=== PATIENT | female | born 1995 | race Caucasian/White ===

== ENCOUNTER 2024-07-09 19:28 | Inpatient (IN) | payer BC ==
[~2024-07-09] VITALS: Ht 170.2 cm; Wt 64.0 kg
[2024-07-09] MEDS ORDERED: NO HOME MEDS (20:08)
[2024-07-09] MEDS ORDERED: diphenhydrAMINE 50 mg/ml inj IM ONE (20:15)
[2024-07-09] MEDS: LORazepam 1 MG tablet PO ONE (20:43)
[2024-07-09] MEDS: OLANZapine 2.5MG tablet PO STA (20:43)
[2024-07-09 20:47] LABS: BASOPHILS % (AUTO) 0.4 % (0-1); EOSINOPHILS % (AUTO) 0.2 % (0-6); HEMATOCRIT 44.9 % (35.0-45.0); HEMOGLOBIN 15.3 g/dl (12.0-16.0); LYMPHOCYTES % (AUTO) 18.9 % (21-51); MEAN CORPUSCULAR HGB CONC 33.9 g/dL (33.0-36.5); MEAN CORPUSCULAR VOLUME 91.5 FL (78-98); MEAN PLATELET VOLUME 8.4 FL (7.4-10.4); MONOCYTES # (AUTO) 0.9 X10'3 (0-0.9); MONOCYTES % (AUTO) 8.7 % (2-12); NEUTROPHILS # (AUTO) 7.7 X10'3 (1.8-7.7); NEUTROPHILS % (AUTO) 71.8 % (42-75); PLATELET COUNT 324 X10'3 (140-440); RED BLOOD COUNT 4.91 X10'6 (4.20-5.60); RED CELL DISTRIBUTION WIDTH 12.7 % (11.5-14.5); WHITE BLOOD COUNT 10.7 X10'3 (4.5-11.0)
[2024-07-09] MEDS: OLANZAPINE 5 MG TABLET PO STA (20:47)
[2024-07-09 21:07] LABS: ALANINE AMINOTRANSFERASE 25 U/L (12-78); ALBUMIN 4.2 G/DL (3.4-5.0); ALBUMIN/GLOBULIN RATIO 1.4 (1.1-1.5); ALKALINE PHOSPHATASE 44 IU/L (46-116); ANION GAP 14 (8-16); ASPARTATE AMINO TRANSFERASE 31 U/L (10-37); BLOOD UREA NITROGEN 20 MG/DL (7-18); BUN/CREATININE RATIO 24.4 (10.0-20.0); CALCIUM 8.9 MG/DL (8.5-10.1); CHLORIDE 103 MMOL/L (99-107); CREATININE 0.82 MG/DL (0.40-0.90); GLUCOSE 77 MG/DL (70-104); SODIUM 139 MMOL/L (135-145); TOTAL CARBON DIOXIDE 22.5 MMOL/L (24-32); TOTAL PROTEIN 7.3 G/DL (6.4-8.2); eCRCL 98 ML/MIN; eGFR 82 ML/MIN
[2024-07-09 21:16] LABS: ETHANOL < 10 MG/DL (<10); THYROID STIMULATING HORMONE 2.62 ulU/ml (0.34-4.50)
[2024-07-09 21:38] LABS: BILIRUBIN,URINE NEGATIVE (Neg); CLARITY,URINE CLOUDY (Clear); COLOR,URINE YELLOW (Yellow); GLUCOSE, URINE NEGATIVE (Neg); KETONES,URINE >=80 mg/dl (Neg); LEUKOCYTE ESTERASE ,URINE NEGATIVE (Neg); NITRITES, URINE NEGATIVE (Neg); OCCULT BLOOD,URINE NEGATIVE (Neg); PROTEIN,URINE 30 mg/dl (Neg); UROBILINOGEN,URINE 0.2 E.U/dL (0.2-1.0)
[2024-07-09 21:54] LABS: URINE AMPHETAMINE SCREEN NEGATIVE (Neg); URINE BARBITUATE SCREEN NEGATIVE (Neg); URINE BENZODIAZEPINES SCREEN NEGATIVE (Neg); URINE CANNABINOID SCREEN POSITIVE (Neg); URINE COCAINE SCREEN NEGATIVE (Neg); URINE METHADONE SCREEN NEGATIVE (Neg); URINE OPIATE SCREEN NEGATIVE (Neg); URINE PHENCYCLIDINE SCREEN NEGATIVE (Neg)
[2024-07-09] MEDS: ibuprofen tablet 400 MG TABLET PO ONE (21:56)
[2024-07-09 22:02] LABS: UA COLLECTION TYPE CLN CATCH MIDSTREAM
[2024-07-09 22:03] LABS: BACTERIA,URINE 1+ /HPF (Neg); RBC,URINE NONE SEEN /HPF (0-2); SQUAMOUS EPITHELIAL CELL,UR FEW /LPF (FEW); WBC,URINE 0-4 /HPF (0-4)
[2024-07-09 22:04] LABS: MUCUS STRANDS FEW /LPF (Neg)
[2024-07-09 22:26] LABS: BETA HCG,QUANTITATIVE < 1.0 mIU/ml
[2024-07-10 20:00] VITALS: BP 138/94; PULSE 93; RESP 17; TEMP 98.2; O2SAT 100
[2024-07-10] MEDS ORDERED: mag hydrox/Alum hydrox/simeth 30ml oral suspension PO PRN (20:40)
[2024-07-10 21:57] VITALS: RESP 17; O2SAT 100
[2024-07-10] MEDS: OLANZapine 2.5MG tablet PO SCH (22:06)
[2024-07-10] MEDS: acetaminophen 325mg tablet PO PRN (22:06)
[2024-07-10] MEDS: traZODone 50mg tablet PO SCH (22:06)
[2024-07-11 07:20] VITALS: BP 114/84; PULSE 100; RESP 16; TEMP 98.6; O2SAT 98
[2024-07-11 08:39] LABS: CHOL/HDL RATIO 2.1 (0.00-4.99); CHOLESTEROL 179 MG/DL (0-200); HDL CHOLESTEROL 86 MG/DL (35-60); LDL CHOLESTEROL 75 MG/DL (50-100); TRIGLYCERIDES 118 MG/DL (20-135)
[2024-07-11 09:10] VITALS: RESP 16; RESP 17; O2SAT 100; O2SAT 98
[2024-07-11 09:27] LABS: HEMOGLOBIN A1C 4.9 % (4.5-6.2)
[2024-07-11] MEDS: sertraline 25mg tablet PO SCH (16:49)
[2024-07-11] MEDS: acetaminophen 325mg tablet PO PRN (16:50)
[2024-07-11 20:00] VITALS: RESP 16
[2024-07-11] MEDS: aripiprazole 5mg tablet PO SCH (20:33)
[2024-07-11] MEDS: docusate sod 100mg capsule PO SCH (20:33)
[2024-07-11] MEDS: hydrOXYzine 25 MG tablet PO SCH (20:34)
[2024-07-12 07:00] VITALS: RESP 18; O2SAT 98
[2024-07-12 08:00] VITALS: BP 132/75; PULSE 116; RESP 18; TEMP 97.9; O2SAT 98
[2024-07-12] MEDS: ondansetron 4mg rapidly disintigrating tab PO PRN (08:03)
[2024-07-12] MEDS: magnesium hydroxide 30ml (MOM) UD suspension PO PRN (08:03)
[2024-07-12] MEDS: hydrOXYzine 25 MG tablet PO SCH ×2 (08:14→20:12)
[2024-07-12 19:00] VITALS: RESP 18; O2SAT 99
[2024-07-12 20:00] VITALS: BP 136/90; PULSE 98; RESP 18; TEMP 99.7
[2024-07-12] MEDS: sertraline 50mg tablet PO ONE (20:13)
[2024-07-13 07:30] VITALS: BP 141/94; PULSE 100; RESP 16; TEMP 97.8; O2SAT 100; O2SAT 93
[2024-07-13] MEDS ORDERED: sertraline 25mg tablet PO SCH (08:00)
[2024-07-13 19:00] VITALS: RESP 17
[2024-07-13 20:00] VITALS: PULSE 97; RESP 17; TEMP 98.3; O2SAT 98
[2024-07-13] MEDS: sertraline 25mg tablet PO SCH (21:02)
[2024-07-14] MEDS: hydrOXYzine 25 MG tablet PO PRN (03:18)
[2024-07-14 07:30] VITALS: BP 130/75; PULSE 95; RESP 18; TEMP 97.5; O2SAT 96
[2024-07-14 12:45] LABS: HCG SERUM QL NEGATIVE
[2024-07-14 19:00] VITALS: RESP 16; O2SAT 98
[2024-07-14 20:00] VITALS: BP 121/85; PULSE 97; RESP 16; TEMP 98.2
[2024-07-15 07:30] VITALS: BP 147/66; PULSE 103; RESP 16; TEMP 97.4; O2SAT 97
[2024-07-15 19:00] VITALS: RESP 18; O2SAT 99
[2024-07-15 20:15] VITALS: BP 150/88; PULSE 105; RESP 15; TEMP 97.8
[2024-07-15] MEDS: cetirizine 10mg tablet PO SCH (21:34)
[2024-07-16 07:30] VITALS: BP 123/80; PULSE 90; RESP 15; TEMP 97.7
[2024-07-16] MEDS ORDERED: HYDR-3686 PO (10:52)
[2024-07-16] MEDS ORDERED: SERT25TA84 PO (10:52)
[2024-07-16] MEDS ORDERED: ARIP5TAB53 PO (10:52)
== END 2024-07-16 11:35 | disposition home or self-care (01) | DRG 881 ==
LOC: ER 19:29 → EEVIPCON 19:29 → ADULT MH 07-10 14:15
PROVIDERS: ADMIT Psychiatry & Neurology Psychiatry; ATTEND Psychiatry & Neurology Psychiatry
PROC: GZHZZZZ Group Psychotherapy (ICD-10-PCS; principal; 2024-07-11)
PROC: GZ51ZZZ Individual Psychotherapy, Behavioral (ICD-10-PCS; 2024-07-11)
DX: F32.9 Major depressive disorder, single episode, unspecified (principal); R45.851 Suicidal ideations; F41.9 Anxiety disorder, unspecified; Z20.822 Contact with and (suspected) exposure to COVID-19; S00.11XA Contusion of right eyelid and periocular area, initial encounter; Z88.8 Allergy status to other drugs, medicaments and biological substances; Z91.410 Personal history of adult physical and sexual abuse; X58.XXXA Exposure to other specified factors, initial encounter; Y93.89 Activity, other specified; Y92.89 Other specified places as the place of occurrence of the external cause; Y99.8 Other external cause status
CPT/HCPCS: 36415; 80053; 80061; 80305; 80320; 81001; 83036; 84443; 84702; 84703; 85025; 87081; 87811; 99285; Q0177

== ENCOUNTER 2024-12-25 12:14 | Emergency (ER) | payer BC ==
[~2024-12-25] VITALS: Ht 165.1 cm; Wt 61.4 kg
[~2024-12-25 12:14] MED LIST: ARIP5TAB53 PO; HYDR-3686 PO; SERT25TA84 PO
[2024-12-25 12:17] VITALS: TEMP 97.8
--- NOTE | 2024-12-25 12:27 | ELECTROCARDIOGRAPH REPORT ---
[facility] Test Date: 2024-12-25 Test Time: 12:25:41 Pat Name: LARA MOORE Department: [facility] Patient ID: [id number] Room: Gender: F Tours Hostess: : 1995 Requested By: JAS PUCKETT Order Number: [id number] Reading MD: Measurements Intervals [place] Rate: 117 P: 86 MN: 172 QRS: 65 QRSD: 81 T: 35 QT: 304 QTc: 424 Interpretive Statements Sinus tachycardia Probable left atrial enlargement Please click the below link to view image of tracing.
--- NOTE | 2024-12-25 15:29 | Physician Documentation ---
History of Present Illness ~ Chief Complaint: Dizziness Stated Complaint: ANXIETY Time Seen by MD: 14:21 Primary Medical Doctor: None HPI Maryanne is a 29-year-old female brought to the emergency department after an episode last evening that involved both upper and lower extremities being numb and tingling without loss of consciousness yet was associated with chest discomfort anxiousness and nervousness. Patient takes Vyvanse, hydroxyzine p.r.n. and Pristiq. She is followed by psychiatry. Her Vyvanse dose was recently increased three weeks ago yet this is the 1st episode of this severity. Prior episodes were less severe which is why patient was placed on the hydroxyzine. There was no loss of consciousness. Episode has been slowly resolving on its own. Patient does report that Wednesday she had marijuana from a pen. Presently she has some occasional chest discomfort without shortness of breath. No other recent illness, injuries or ill contacts or travels. Accompanied the emergency department with her mom. Patient will need reports that she celebrated her boyfriend's birthday with several cocktails and cannabis. Reports that she felt hung over the following day. Reports this is not her normal activity. Medication Reconciliation Allergies: Coded Allergies: diphenhydramine (Verified Adverse Reaction, Mild, 12/25/24) Uncoded Allergies: docusate sodium (Adverse Reaction, Intermediate, Nausea and vomiting, 07/16/24) pt was being treated for nausea, and feels better without colace given. Mother has same response to stool softeners. Scheduled Aripiprazole (Aripiprazole), 5 MG PO HS Sertraline HCl (Sertraline HCl), 3 TAB PO DAILY Scheduled PRN Hydroxyzine Hcl* (Atarax*), 25 MG PO Q6H PRN for Anxiety Review of Systems Constitutional: Reports: see HPI Eyes: Reports: no symptoms reported ENT: Reports: no symptoms reported Respiratory: Reports: no symptoms reported Cardiovascular: Reports: chest pain, lightheadedness, irregular heart rate; Denies: syncope, palpitations Gastrointestinal: Denies: nausea, vomiting Neurological: Reports: no symptoms reported Musculoskeletal: Reports: no symptoms reported Integumentary: Reports: no symptoms reported Hematologic/Lymphatic: Reports: no symptoms reported Endocrine: Reports: no symptoms reported Psychiatric: Reports: anxiety Physical Exam Vital Signs: Temperature: 97.8, Source: Temporal, Heart Rate: 118, Respiratory Rate: 18, BP: 147/105, Pulse Oximetry: 99, Weight: 61.360 General Appearance: alert, WD/WN; No: ill-appearing, mild distress Neck: non-tender Head: normal Pupils/EOM/Fundus: PERRLA EENT: normal ENT inspection Respiratory: lungs clear, normal breath sounds Chest: no accessory muscle use Cardiovascular: normal peripheral pulses, regular rate, rhythm, no edema, no gallop, no JVD, no murmur Gastrointestinal: non-tender Back: normal inspection Skin: warm/dry Orientation / Memory / CN: oriented x3 Coordination / Gait: normal finger to nose Motor / Sensory: no motor deficit Cerebellar Function: normal Psych: appropriate Progress Results/Orders Results/Orders Completed Orders - MELISA MORENO PAC TSH (12/25/24 15:12) CMP (12/25/24 15:12) Cbc/Diff (12/25/24 15:12) Drug Screen, Urine (12/25/24 15:12) Hcg, Ur Ql (12/25/24 15:12) Ua W/Microscopic, Cult If Ind (12/25/24 15:24) Vital Signs 12/25/24 12/25/24 12/25/24 12:17 15:48 17:11 Temp 97.8 Pulse 118 94 90 Resp 18 16 16 B/P (MAP) 147/105 136/100 (112) 131/87 Pulse Ox 99 94 96 O2 Flow Rate 0 Laboratory Tests Test 12/25/24 15:24 12/25/24 15:33 Urine Specimen Description Cln catch midstream Urine Color Yellow Urine Clarity Clear Urine pH 6.0 Urine Specific [place] <=1.005 Urine Protein Negative Urine Glucose (UA) Negative Urine Ketones 40 H Urine Occult Blood Trace-intact Urine Nitrite Negative Urine Bilirubin Negative Urine Urobilinogen 0.2 Urine Leukocyte Esterase Negative Urine RBC None seen Urine WBC 0-4 Urine Squamous Epithelial Cells Moderate Urine Bacteria None seen Urine Culture Indicated Not ind Volume Urine Centrifuged 10 ml Urine HCG, Qualitative Negative Urine Comment Urine Opiates Screen Negative Urine Methadone Screen Negative Urine Fentanyl Screen Negative Urine Barbiturates Screen Negative Urine Phencyclidine Screen Negative Urine Amphetamines Screen Positive Urine Benzodiazepines Screen Negative Urine Cocaine Screen Negative Urine Cannabinoids Screen Positive Drug Screen Comment White Blood Count 8.7 Red Blood Count 4.87 Hemoglobin 14.9 Hematocrit 43.0 Mean Corpuscular Volume 88.2 Mean Corpuscular Hemoglobin 30.5 Mean Corpuscular Hemoglobin Concent 34.6 Red Cell Distribution Width 13.1 Platelet Count 276 Mean Platelet Volume 7.7 Neutrophils (%) (Auto) 77.6 H Lymphocytes (%) (Auto) 17.2 L Monocytes (%) (Auto) 4.6 Eosinophils (%) (Auto) 0.3 Basophils (%) (Auto) 0.3 Neutrophils # (Auto) 6.8 Lymphocytes # (Auto) 1.5 Monocytes # (Auto) 0.4 Eosinophils # (Auto) 0.0 Basophils # (Auto) 0.0 CBC Comment Sodium Level 140 Potassium Level 4.0 Chloride Level 101 Carbon Dioxide Level 25.3 Anion Gap 14 Blood Urea Nitrogen 11 Creatinine 0.73 Estimated GFR/1.73 m2 > 90 BUN/Creatinine Ratio 15.1 Glucose Level 86 Calcium Level 9.1 Total Bilirubin 1.5 H Aspartate Amino Transf (AST/SGOT) 23 Alanine Aminotransferase (ALT/SGPT) 16 Alkaline Phosphatase 49 Total Protein 7.9 Albumin 4.2 Globulin 3.7 Albumin/Globulin Ratio 1.1 Thyroid Stimulating Hormone (TSH) 3.95 Chemistry Comments Medical Decision Making Additional Information ED plan to include laboratory screening for electrolyte derangement, white blood cell abnormalities, urine , tox screen and infection. EKG is reassuring. Patient has the ability to schedule psychiatry follow up. Her labs we will be obtained, reviewed and discussed with her. Labs and toxicology all reassuring. Patient is likely pending discharge after laboratory review. No a dditional episodes that were similar to last night. In fact mother reports that she has likely on normalized and metabolize to her norm. Patient's safely discharged in the emergency department after shared discussion regarding the risks of the head benefits of recreational drugs and alcohol use with current medications. Departure Disposition: HOME / SELF CARE / HOMELESS Impression: Primary Impression: Dizziness Additional Impression: Dehydration Condition: Improved Discharge Instructions: Dizziness Additional Instructions: Please continue to oral hydrate. Please make follow up appointment with Psychiatry regarding medication review. Your labs were all reassuring today. Thank you for visiting emergency department of [facility]. Referrals: NO PRIMARY CARE PROVIDER (PCP) Education Educated: Patient, Family Educated regarding: diagnosis, treatment Signature Scribe Signature: . Attestation: . MELISA MORENO PAC Dec 25, 2024 15:29
[2024-12-25 15:40] LABS: MEAN PLATELET VOLUME 7.7 FL (7.4-10.4); RED CELL DISTRIBUTION WIDTH 13.1 % (11.5-14.5)
[2024-12-25 15:43] LABS: URINE HCG NEGATIVE (NEG)
[2024-12-25 15:46] LABS: LEUKOCYTE ESTERASE ,URINE NEGATIVE (Neg); NITRITES, URINE NEGATIVE (Neg); OCCULT BLOOD,URINE TRACE-INTACT (Neg)
[2024-12-25 15:50] LABS: UA COLLECTION TYPE CLN CATCH MIDSTREAM
[2024-12-25 15:52] LABS: URINE AMPHETAMINE SCREEN POSITIVE (Neg); URINE BARBITUATE SCREEN NEGATIVE (Neg); URINE BENZODIAZEPINES SCREEN NEGATIVE (Neg); URINE CANNABINOID SCREEN POSITIVE (Neg); URINE COCAINE SCREEN NEGATIVE (Neg); URINE METHADONE SCREEN NEGATIVE (Neg); URINE OPIATE SCREEN NEGATIVE (Neg); URINE PHENCYCLIDINE SCREEN NEGATIVE (Neg)
[2024-12-25 15:54] LABS: SQUAMOUS EPITHELIAL CELL,UR MODERATE /LPF (FEW)
[2024-12-25 15:59] LABS: CREATININE 0.73 MG/DL (0.40-0.90); TOTAL CARBON DIOXIDE 25.3 MMOL/L (24-32); eCRCL 101 ML/MIN; eGFR > 90 ML/MIN
[2024-12-25 17:11] VITALS: BP 131/87; PULSE 90; RESP 16; O2SAT 96
== END 2024-12-25 17:13 | disposition home or self-care (01) ==
LOC: ER 12:14
DX: R42 Dizziness and giddiness (principal); F41.9 Anxiety disorder, unspecified; E86.0 Dehydration; Z88.8 Allergy status to other drugs, medicaments and biological substances; Z79.899 Other long term (current) drug therapy
CPT/HCPCS: 36415; 80053; 80305; 81001; 81025; 84443; 85025; 93005; 99284

== ENCOUNTER 2025-03-05 04:00 | Emergency (ER) | payer BC, OTHER ==
[~2025-03-05] VITALS: Ht 170.2 cm; Wt 63.2 kg
[2025-03-05 04:43] LABS: MEAN PLATELET VOLUME 8.3 FL (7.4-10.4); RED CELL DISTRIBUTION WIDTH 13.1 % (11.5-14.5)
[2025-03-05 05:07] LABS: CREATININE 0.67 MG/DL (0.40-0.90); TOTAL CARBON DIOXIDE 28.5 MMOL/L (24-32); eCRCL 119 ML/MIN; eGFR > 90 ML/MIN
--- NOTE | 2025-03-05 05:53 | Physician Documentation ---
History of Present Illness ~ Chief Complaint: Complications Stated Complaint: PAIN IN ABDOMIN Time Seen by MD: 04:21 OK to notify your PCP?: Yes Primary Medical Doctor: None Source: patient, RN/, RN notes reviewed, old records Mode of Arrival: POV, Ambulatory Exam Limitations: no limitations HPI 29 year old female, A1 at 5 weeks' gestation (LMP late January), with PMH uterine fibroids, ovarian cysts w/ rupture presenting with heavy vaginal bleeding and cramps. Per patient she woke up at 3am this morning and had bled through her clothes, she placed a menstrual cup which is currently half full with blood. She has associated cramping abdominal pain and nausea. She had a positive test last week and is concerned she is miscarrying. No prior history of STI's. Blood tests done in the ED showed a Hcg of 3. Complains Of: pelvic pain, vaginal bleeding Para Abort: (3), Para (2), Abort (1) Weeks gestation: 5 Location of Pain: suprapubic Pain Quality: cramping Timing/Duration of Onset: hours Vaginal Bleeding: heavy Associated Symptoms: nausea Medication Reconciliation Allergies: Coded Allergies: diphenhydramine (Verified Adverse Reaction, Mild, 12/25/24) Uncoded Allergies: docusate sodium (Adverse Reaction, Intermediate, Nausea and vomiting, 07/16/24) pt was being treated for nausea, and feels better without colace given. Mother has same response to stool softeners. Scheduled Aripiprazole (Aripiprazole), 5 MG PO HS Sertraline HCl (Sertraline HCl), 3 TAB PO DAILY Scheduled PRN Hydroxyzine Hcl* (Atarax*), 25 MG PO Q6H PRN for Anxiety Past Medical History Past Medical History: Anxiety, Depression Past Surgical History: no surgical history Smoking Status: Never smoker Alcohol Use: None Drug Use: none Review of Systems All Other Systems at this time: Reviewed and Negative Physical Exam Physical Exam Vital Signs: RN Vital Signs have been reviewed: Yes, Temperature: 97.7, Source: Oral, Heart Rate: 73, Respiratory Rate: 16, BP: 111/77, Pulse Oximetry: 100, Weight: 63.200 Oxygen Flow Rate: 0 Physical Exam VITALS: Reviewed and as above. GENERAL: Alert, no apparent distress. RESPIRATORY: Lungs clear, normal breath sounds, no respiratory distress. CHEST: No accessory muscle use, no retractions CV: Regular rate, rhythm, no edema, no murmur, No: JVD GI: Bowels sounds present, no rebound, guarding, or rigidity. Tenderness to palpation in the suprapubic region, enlarged uterus. BACK: No CVA tenderness, or swelling gu: DEFERED MUSCULOSKELETAL No deformities, no edema SKIN: Warm and dry, no rash NEURO: Oriented x4, No motor or sensory deficit PSYCH: Normal mood and affect, no agitation Progress Progress Note PT BLEEDING IMPROVED. hcg LOW, us NO RETAINED PRODUCTS, Results/Orders Results/Orders Orders - RAMESH GOMEZ MD US OB (03/05/25 07:07) Completed Orders - RAMESH GOMEZ MD Cbc/Diff (03/05/25 04:21) Hcg Serum Qt (03/05/25 04:21) Abo/Rh (03/05/25 04:21) BMP (03/05/25 04:21) US OB (03/05/25 07:07) Ketorolac Trometh 15mg/Ml Vial (Toradol (03/05/25 07:15) Vital Signs 03/05/25 03/05/25 03/05/25 03/05/25 04:04 04:19 04:23 05:01 Temp 97.7 Pulse 111 89 73 Resp 20 16 16 16 B/P (MAP) 126/92 119/81 (94) 111/77 (88) Pulse Ox 100 100 100 O2 Flow Rate 0 0 0 03/05/25 08:25 Temp 98.6 Pulse 80 Resp 16 B/P (MAP) 118/83 Pulse Ox 99 Laboratory Tests Test 03/05/25 04:32 White Blood Count 6.2 Red Blood Count 4.62 Hemoglobin 14.4 Hematocrit 41.5 Mean Corpuscular Volume 89.7 Mean Corpuscular Hemoglobin 31.0 Mean Corpuscular Hemoglobin Concent 34.6 Red Cell Distribution Width 13.1 Platelet Count 220 Mean Platelet Volume 8.3 Neutrophils (%) (Auto) 56.3 Lymphocytes (%) (Auto) 33.6 Monocytes (%) (Auto) 7.9 Eosinophils (%) (Auto) 1.7 Basophils (%) (Auto) 0.5 Neutrophils # (Auto) 3.5 Lymphocytes # (Auto) 2.1 Monocytes # (Auto) 0.5 Eosinophils # (Auto) 0.1 Basophils # (Auto) 0.0 CBC Comment Sodium Level 142 Potassium Level 3.9 Chloride Level 108 H Carbon Dioxide Level 28.5 Anion Gap 6 L Blood Urea Nitrogen 14 Creatinine 0.67 Estimated GFR/1.73 m2 > 90 BUN/Creatinine Ratio 20.9 H Glucose Level 93 Calcium Level 8.2 L Albumin 3.7 HCG Beta Subunit 3 Chemistry Comments EKG/XRAY/CT/US/VASC/MRI Ultrasound : Interpreted By: radiologist Ultrasound of: obstetric Impression Ordering Physician: RAMESH GOMEZ MD Exam: US OB OB ULTRASOUND <14 WEEKS: HISTORY: ABD PAIN TECHNIQUE: Multiple real-time grayscale sonographic images of the pelvis with duplex Doppler color flow, spectral and M-mode analysis. TRANSDUCERS: Transabdominal FINDINGS: The uterus measures 8.6 x 4.5 x 4.9 cm. The cervix not well visualized. Right ovary measures 3.6 x 1.5 x 1.9 cm with normal Doppler color flow Left ovary measures 5.4 x 4.9 x 3.8 cm with normal Doppler color flow. There is a simple left ovarian cyst measuring 3.7 cm. No intrauterine is visualized at this time. IMPRESSION: Thickened endometrium, without visualized gestational sac, pole or cardiac activity. Differential considerations include early, normal intrauterine , an anembryonic and spontaneous . Recommend correlation with follow-up beta hCG levels. Repeat ultrasound could be performed if clinically indicated. Electronically Signed by:CRISTOPHER SHABAZZ MD Date & Time: 03/05/25 0836 Medical Decision Making Additional information obtaine: old records Findings PT BLEEDING IMPROVED. hcg LOW, us NO RETAINED PRODUCTS, Differential Dx:Considerations: Include: -complete, - incomplete, -inevitable, -missed, -threatened, Ectopic , Ectopic preg.-ruptured, Vaginal bleeding Departure Disposition: HOME / SELF CARE / HOMELESS Impression: Primary Impression: , complete Condition: Stable Discharge Instructions: Miscarriage Additional Instructions: Use ibuprofen 600 mg every 6 hours for pain, return for worsening of your symptoms or if you develop fevers or significant bleeding. Follow up with her healthcare providers soon as possible Referrals: NO PRIMARY CARE PROVIDER (PCP) Education Educated: Patient Educated regarding: diagnosis, treatment, prognosis, need for follow up, other Critical Care Note Critical Care Note The very real possibility of a deterioration of this patient's condition required the highest level of my preparedness for sudden, emergent intervention. I provided critical care services, which included medication orders, frequent reevaluations of the patient's condition and response to treatment, ordering and reviewing test results, and discussing the case with various consultants. Excludes time spent performing separately billable procedures. The critical care time associated with the care of the patient was. Signature Scribe Signature: NO SCRIBE Attestation: The note accurately reflects work and decisions made by me.Ramesh Gomez MD 03/05/25 05:53 RAMESH GOMEZ MD Mar 05, 2025 05:53 DCROBERT WHIPPLE MD Mar 05, 2025 07:18
[2025-03-05] MEDS: ondansetron/PF 4mg/2ml inj IV ONE (07:05)
[2025-03-05] MEDS: ketorolac trometh 15mg/ml vial 15 MG/ML ML IV ONE (08:15)
[2025-03-05 08:25] VITALS: BP 118/83; PULSE 80; RESP 16; TEMP 98.6; O2SAT 99
--- NOTE | 2025-03-05 08:38 | RADIOLOGY REPORT ---
OB ULTRASOUND <14 WEEKS: HISTORY: ABD PAIN TECHNIQUE: Multiple real-time grayscale sonographic images of the pelvis with duplex Doppler color flow, spectral and M-mode analysis. TRANSDUCERS: Transabdominal FINDINGS: The uterus measures 8.6 x 4.5 x 4.9 cm. The cervix not well visualized. Right ovary measures 3.6 x 1.5 x 1.9 cm with normal Doppler color flow Left ovary measures 5.4 x 4.9 x 3.8 cm with normal Doppler color flow. There is a simple left ovarian cyst measuring 3.7 cm. No intrauterine is visualized at this time. IMPRESSION: Thickened endometrium, without visualized gestational sac, pole or cardiac activity. Differential considerations include early, normal intrauterine , an anembryonic and spontaneous . Recommend correlation with follow-up beta hCG levels. Repeat ultrasound could be performed if clinically indicated.
== END 2025-03-05 08:26 | disposition home or self-care (01) ==
LOC: ER 04:01
DX: O03.9 Complete or unspecified spontaneous abortion without complication (principal); F41.9 Anxiety disorder, unspecified; F32.A Depression, unspecified; Z88.8 Allergy status to other drugs, medicaments and biological substances; Z79.899 Other long term (current) drug therapy; Z3A.01 Less than 8 weeks gestation of pregnancy
CPT/HCPCS: 36415; 76801; 80048; 84702; 85025; 86900; 86901; 96374; 99285; J2405